=== PATIENT | female | born 1970 | race Caucasian/White ===

== ENCOUNTER 2019-11-30 05:58 | Inpatient (IN) | payer MEDICAID ==
[~2019-11-30] VITALS: Ht 167.6 cm; Wt 63.5 kg
--- NOTE | 2019-11-30 06:02 | NUR ---
PT AAOX4. LIBYAN SPEAKING. BIBRA [address] STREETS. C/O SOB BUT SAT 96% ON RA. POSSIBLE DRUG USE PER RA. PT PLACED IN BED 6 ON MONITOR AND PULSE OX. NOTED TACHY @ 119. NO ACUTE DISTRESS NOTED. AWAITING MD FOR EVAL AND ORDERS.
--- NOTE | 2019-11-30 06:08 | NUR ---
PT AMBULATED TO THE RESTROOM WITH STEADY GAIT.
--- NOTE | 2019-11-30 06:09 | NUR ---
PT PROVIDED URINE SAMPLE, SENT TO LAB.
--- NOTE | 2019-11-30 06:10 | NUR ---
LINE INITIATED RAC 20G, LABS DRAWN AND SENT TO LAB.
--- NOTE | 2019-11-30 06:11 | NUR ---
PT STATED SHE DID CRYSTAL METH YESTERDAY.
--- NOTE | 2019-11-30 06:12 | NUR ---
COVID SWAB SENT TO LAB
[2019-11-30] MEDS ORDERED: ACETAMINOPHEN 325 MG TABLET ONE (06:30)
[2019-11-30] MEDS ORDERED: IV NS 0.9% 1,000 ML IV ONE (06:30)
[2019-11-30] MEDS ORDERED: ACETAMINOPHEN 325 MG TABLET PO ONE (06:30)
--- NOTE | 2019-11-30 06:35 | NUR ---
XRAY AT BEDSIDE
[2019-11-30 06:39] LABS: APPEARANCE,URINE SL CLOUDY (CLEAR); BILIRUBIN,URINE SMALL (NEGATIVE); BLOOD, URINE MODERATE Ery/uL (NEGATIVE); COLOR,URINE DARK YELLO (YELLOW); KETONES,URINE TRACE (NEGATIVE); LEUKOCYTE ESTERASE ,URINE NEGATIVE (NEGATIVE); NITRITE, URINE NEGATIVE (NEGATIVE); PROTEIN,URINE 100 mg/dl (NEGATIVE); UGLUCOSE NEGATIVE (NEGATIVE)
[2019-11-30 06:41] LABS: BASOPHILS % (AUTO) 0.2 % (0.0-2.0); EOSINOPHILS % (AUTO) 0.6 % (0.0-6.0); HEMATOCRIT 39 % (33-45); HEMOGLOBIN 13.2 g/dL (11.5-14.8); LYMPHOCYTES % (AUTO) 7.4 % (20.0-44.0); MEAN CORPUSCULAR HGB CONC 34 g/dl (31.0-36.0); MEAN CORPUSCULAR VOLUME 89 fL (82-100); MONOCYTES # (AUTO) 1.1 /CMM (0.1-1.30); NEUTROPHILS # (AUTO) 11.7 /CMM (1.8-8.9); NEUTROPHILS % (AUTO) 83.8 % (43.0-81.0); PLATELET COUNT (AUTO) 274 /CMM (150-450); RED BLOOD CELL COUNT(AUTO) 4.41 MIL/uL (4.0-5.2)
[2019-11-30 06:57] LABS: ALANINE AMINOTRANSFERASE 22 U/L (12-78); ALKALINE PHOSPHATASE 86 U/L (46-116); ASPARTATE AMINOTRANSFERASE 16 U/L (15-37); BILIRUBIN,DIRECT 0.2 mg/dL (0.0-0.2); BILIRUBIN,TOTAL 0.5 mg/dL (0.2-1.0); CALCIUM, SERUM 8.3 mg/dL (8.5-10.1); CARBON DIOXIDE 27 mmol/L (21-32); CHLORIDE 96 mmol/L (98-107); CREATININE 0.9 mg/dL (0.6-1.3); GLUCOSE 142 mg/dL (74-106); POTASSIUM 3.4 mmol/L (3.5-5.1); SODIUM SERUM 134 mmol/L (136-145); TOTAL PROTEIN, SERUM 8.8 g/dL (6.4-8.2); UREA NITROGEN, BLOOD 15 mg/dL (7-18)
[2019-11-30 07:12] LABS: BACTERIA,URINE Few /HPF (None Seen); SQUAMOUS EPITHELIAL CELL,UR Many /HPF (None Seen); WBC,URINE 0-2 /HPF (0-3)
[2019-11-30] MEDS ORDERED: CEFEPIME 1 GM in IV D5W 50 ML IV ONE (07:30)
[2019-11-30] MEDS ORDERED: VANCOMYCIN 1 GM in IV D5W 250 ML IV ONE (07:30)
--- NOTE | 2019-11-30 07:30 | NUR ---
CALLED PHARM FOR MEDS
--- NOTE | 2019-11-30 07:58 | NUR ---
TEMP 101.6, AWARE.
--- NOTE | 2019-11-30 08:03 | NUR ---
REQUESTED BED FROM NURSING SUP.
--- NOTE | 2019-11-30 08:07 | NUR ---
TELE OVERFLOW 253
--- NOTE | 2019-11-30 08:18 | NUR ---
PAGED WALTER POWELL CATERING ATTENDANT
[2019-11-30 08:24] LABS: C-REACTIVE PROTEIN 153.4 mg/dL (0.0-0.9)
--- NOTE | 2019-11-30 08:45 | NUR ---
REPORT GIVEN TO KAVON JOSUE.
[2019-11-30] MEDS ORDERED: IOHEXOL-350 100 ML VIAL IV ONE (08:59)
[2019-11-30] MEDS ORDERED: MAGNESIUM HYDROXIDE 30 ML UDC PO PRN (09:00)
[2019-11-30] MEDS ORDERED: ONDANSETRON HCL/PF 4 MG/2 ML VIAL IVP PRN (09:00)
[2019-11-30] MEDS ORDERED: MAG HYDROX/AL HYDROX/SIMETH 30 ML UDC PO PRN (09:00)
[2019-11-30] MEDS ORDERED: Z GUARD REMEDY 2 OZ OINT TP PRN (09:00)
[2019-11-30] MEDS ORDERED: IV NS 0.9% 250 ML IV ONE (09:00)
--- NOTE | 2019-11-30 09:12 | NUR ---
COVID ANTIGEN SENT.
--- NOTE | 2019-11-30 10:05 | NUR ---
PATIENT TRANSFERRED TO ROOM 253 VIA ACLS PROTOCOL. REPORT GIVEN TO KAVON JOSUE.
[2019-11-30 10:10] VITALS: BP 132/65
--- NOTE | 2019-11-30 10:10 | NUR ---
RN OPENING NOTE Received patient awake transferred to room 253. Verbally responsive. Noted with signs of chills. Wants to go to the bathroom. Assisted in commode. Complained of pain and discomfort on neck and chest. Withdraws from pain. Vital signs taken and hooked up to telemonitor. VS as follows: Temp 100.9, Pulse 127, RR 27, BP 132/65, O2 sat 97%. Noted with pus filled multiple wounds size about 2.0x2.0cm on neck and chest. Picture taken and placed in chart. Placed on ice packs for fever. Safety measures implemented. Call light within reach. Bed locked and on lowest position. HOB elevated. Will cont to monitor.
[2019-11-30] MEDS: IV NS 0.9% 1,000 ML IV PRN (10:52)
[2019-11-30] MEDS: POTASSIUM CL. PREMIX PERIPHER. 50 ML IV SCH ×2 (10:54→12:49)
[2019-11-30] MEDS: HYDROCODONE/APAP 5/325MG TABLET PO PRN ×2 (10:54→19:54)
[2019-11-30] MEDS: ENOXAPARIN SODIUM 40 MG/0.4 ML DISP.SYRIN SQ SCH (10:55)
[2019-11-30 12:00] VITALS: BP 105/65
[2019-11-30] MEDS: CEFEPIME 2 GM in IV D5W 100 ML IV SCH ×2 (13:59→21:56)
[2019-11-30 14:02] LABS: ABG BASE EXCESS -0.8 mmol/L; ABG OXYGEN SATURATION 98.2 % (92.0-98.5); ABG PCO2 30.6 mmHg (35.0-45.0); ABG PH 7.473 (7.350-7.450); ABG PO2 105.6 mmHg (75.0-100.0); AaDO2 57.9 mmHg; COHb 0.5 % (0.5-1.5); MetHb 0.2 % (0.0-1.5); O2Hb 97.5 % (94.0-97.0); SITE, ABG Right Radial; VENT MODE, BG NASAL CANNULA
[2019-11-30 16:00] VITALS: BP 117/70
[2019-11-30] MEDS: VANCOMYCIN 0.75 GM in IV D5W 250 ML IV SCH ×2 (16:47→23:09)
--- NOTE | 2019-11-30 18:24 | NUR ---
COLLECTED URINE SPECIMEN AND CALLED LAB
--- NOTE | 2019-11-30 18:32 | NUR ---
RN CLOSING NOTE Patient asleep in bed appears calm and relaxed no signs of distress. On NC 2L tolerating well O2 sat at 100%. Patient is AOx4 . Tele monitor reading ST 110-115BPM. Patient is NPO at this time. Has RAC #20 running NS @75ML/HR tolerating well. Wound consult ordered. Safety measures reinforced. Call light within reach. Will endorse to baker apprentice nurse.
[2019-11-30] MEDS: ACETAMINOPHEN 325 MG TABLET PO PRN (19:53)
[2019-11-30 20:00] VITALS: BP 109/59
[2019-11-30] MEDS: FAMOTIDINE (20 MG) 20 MG TABLET PO SCH (21:56)
[2019-12-01] VITALS (7 sets, daily range): BP systolic 91–134; BP diastolic 55–76
[2019-12-01] MEDS: IV NS 0.9% 1,000 ML IV PRN ×2 (02:54→20:31)
[2019-12-01 04:38] LABS: BASOPHILS # (AUTO) 0.1 /CMM (0.0-0.2); BASOPHILS % (AUTO) 0.7 % (0.0-2.0); EOSINOPHILS % (AUTO) 6.4 % (0.0-6.0); HEMATOCRIT 37 % (33-45); HEMOGLOBIN 12.3 g/dL (11.5-14.8); LYMPHOCYTES # (AUTO) 0.7 /CMM (0.8-4.8); MEAN CORPUSCULAR HGB CONC 33 g/dl (31.0-36.0); MEAN CORPUSCULAR VOLUME 90 fL (82-100); MONOCYTES # (AUTO) 1.4 /CMM (0.1-1.30); MONOCYTES % (AUTO) 11.3 % (2.0-12.0); NEUTROPHILS # (AUTO) 9.2 /CMM (1.8-8.9); NEUTROPHILS % (AUTO) 75.6 % (43.0-81.0); PLATELET COUNT (AUTO) 235 /CMM (150-450); RED BLOOD CELL COUNT(AUTO) 4.12 MIL/uL (4.0-5.2); WHITE BLOOD COUNT (AUTO) 12.1 K/uL (4.3-11.0)
[2019-12-01 04:52] LABS: CALCIUM, SERUM 7.7 mg/dL (8.5-10.1); MAGNESIUM 2.4 mg/dL (1.8-2.4); PHOSPHORUS 2.4 mg/dL (2.5-4.9); POTASSIUM 3.4 mmol/L (3.5-5.1)
[2019-12-01 05:01] LABS: THYROID STIMULATING HORMONE 1.03 uIU/mL (0.358-3.74)
[2019-12-01] MEDS: HYDROCODONE/APAP 5/325MG TABLET PO PRN ×3 (05:07→20:30)
[2019-12-01] MEDS: CEFEPIME 2 GM in IV D5W 100 ML IV SCH ×3 (05:09→21:15)
--- NOTE | 2019-12-01 05:49 | NUR ---
RN notes In bed, resting comfortably with no respiratory distress noted., Breathing even and unlabored. Alert and oriented, ambulatory, able to verbally communicate needs. Complained of pain, norco x 2 given with relief. Patient's temp at the beginning of the shift was 101.6 cooling measures provided, by 4am temp was 99.1. Kept clean and dry. Will continue to monitor. Will endorse to next shift for continuity of care
--- NOTE | 2019-12-01 07:37 | NUR ---
NUTRITION AIDES TEACHER NOTE PATIENT IN BED, RESTING COMFORTABLY AT THIS TIME , ON 2L NC ,SATURATION 98% AT THIS TIME , STILL ON NPO STATUS ,RT AC HL INTACT AND FLUSHED WELL ON IVF ORDERED KENDAL IN LOWEST AND LOCKED POSITION , WILL CONT TO MONITOR CALL LIGHT WITHIN REACH, ON TELE MONITOR ST HR 102
[2019-12-01] MEDS: VANCOMYCIN 0.75 GM in IV D5W 250 ML IV SCH ×3 (07:48→23:25)
[2019-12-01] MEDS: FAMOTIDINE (20 MG) 20 MG TABLET PO SCH ×2 (08:31→20:30)
[2019-12-01] MEDS: ENOXAPARIN SODIUM 40 MG/0.4 ML DISP.SYRIN SQ SCH (08:32)
--- NOTE | 2019-12-01 09:22 | NUR ---
BUSINESS SERVICES COORDINATOR NOTE PER WALTER DALEY RN HEAVY EQUIPMENT PLUMBING SUPERVISOR OK TO START CARDIAC DIET ,AWARE THAT T 99.4 2DECHO WILL BE DONE
--- NOTE | 2019-12-01 09:45 | NUR ---
CLINICAL TRIALS NURSE NOTE WALTER DALEY RN RIGGING AND CONTROLS AIRCRAFT MECHANIC NOTIFIED THAT PATIENT HAS MRSA IN BLOOD , NO NEW ORDER AT THIS TIME
--- NOTE | 2019-12-01 10:34 | NUR ---
WAREHOUSE SHIPPING RECEIVING CLERK NOTE ASSISTED TO BSC, ABLE TO URINATE WELL
[2019-12-01] MEDS: ACETAMINOPHEN 325 MG TABLET PO PRN ×2 (11:08→23:44)
--- NOTE | 2019-12-01 11:11 | NUR ---
FRESH WORK WRAPPER LAYER NOTE C\O BODY ACHE TYLENOL PO GIVEN ORDERED WILL MONITOR, KEEP CLEAN DRY
[2019-12-01] MEDS ORDERED: POTASSIUM CHLORIDE 20 MEQ TAB.PRT.SR PO SCH (11:30)
[2019-12-01] MEDS ORDERED: K PHOS NEUTRAL 250 MG TABLET PO ONE (12:00)
--- NOTE | 2019-12-01 14:38 | NUR ---
AIRCRAFT CHARTER DISPATCHER NOTE ROUNDS MADE ,CALL LIGHT WITHIN REACH , NO C\O ANY DISCOMFORT AT THIS TIME, WILL MONITOR
--- NOTE | 2019-12-01 16:25 | NUR ---
TOOLS ADMINISTRATOR NOTE ASSISTED TO BSC ABLE TO URINATE WELL C\O BODY PAIN 7\10 NORCO PO GIVEN ORDERED BP111/78 ,SAT 98% WILL MONITOR
--- NOTE | 2019-12-01 16:53 | NUR ---
SWEEPER DRIVER NOTE TRANSFERRED TO ROOM 314 BED2 WITH STABLE CONDITION BY BED
--- NOTE | 2019-12-01 18:45 | NUR ---
MIXING MACHINE ATTENDANT NOTE RESTING COMFORTABLY AT THIS TIME , NO C\O DISCOMFORT AT THIS TIME , ON IVF ORDERED, BED IN LOWEST AND LOCKED POSITION , CALL LIGHT WITHIN REACH, WILL CONT TO MONITOR
--- NOTE | 2019-12-01 19:15 | NUR ---
GLOVE TURNER AND FORMER OPENING NOTES: RECEIVED PATIENT IN BED, AWAKE, A/O X4. NO SOB NOTED. NO COMPLAIN OF PAIN. CALL LIGHT WITHIN REACH. BED IN LOWEST AND LOCKED POSITION. WITH O2 AT 2L/MIN NASAL CANNULA.
[2019-12-02] VITALS: BP 119/66
[2019-12-02 04:00] VITALS: BP_SYST 134; BP_SYST 154; BP_DIAS 73
[2019-12-02] MEDS: CEFEPIME 2 GM in IV D5W 100 ML IV SCH ×2 (05:03→14:09)
--- NOTE | 2019-12-02 05:36 | NUR ---
FOREST NURSERY SUPERVISOR CLOSING NOTES: PATIENT IN BED, ASLEEP, EASILY AROUSABLE. A/O X4. NO SOB NOTED. NO COMPLAIN OF PAIN AT THIS TIME. HOB ELEVATED AT ALL TIMES. CALL LIGHT WITHIN REACH.BED IN LOWEST AND LOCKED POSITION. RESTED THROUGHOUT THE NIGHT. WITH O2 AT 2L/MIN NASAL CANNULA. HAD FEVER LAST NIGHT TEMP 102.4, TYLENOL 650MG PO GIVEN. ICE PACKS PLACED ON THE AXILLAE. LATEST TEMP IS 98.2
[2019-12-02] MEDS: HYDROCODONE/APAP 5/325MG TABLET PO PRN ×3 (06:02→21:13)
[2019-12-02 06:56] LABS: BASOPHILS % (AUTO) 0.5 % (0.0-2.0); EOSINOPHILS % (AUTO) 8.6 % (0.0-6.0); HEMATOCRIT 33 % (33-45); LYMPHOCYTES # (AUTO) 0.9 /CMM (0.8-4.8); LYMPHOCYTES % (AUTO) 8.1 % (20.0-44.0); MEAN CORPUSCULAR HGB CONC 34 g/dl (31.0-36.0); MEAN CORPUSCULAR VOLUME 89 fL (82-100); MONOCYTES % (AUTO) 9.6 % (2.0-12.0); NEUTROPHILS # (AUTO) 7.8 /CMM (1.8-8.9); NEUTROPHILS % (AUTO) 73.2 % (43.0-81.0); PLATELET COUNT (AUTO) 232 /CMM (150-450); WHITE BLOOD COUNT (AUTO) 10.6 K/uL (4.3-11.0)
[2019-12-02 07:23] LABS: CALCIUM, SERUM 7.9 mg/dL (8.5-10.1); CREATININE 0.8 mg/dL (0.6-1.3); PHOSPHORUS 1.6 mg/dL (2.5-4.9); POTASSIUM 3.3 mmol/L (3.5-5.1)
--- NOTE | 2019-12-02 07:30 | NUR ---
TELE/RN NOTE THE PATIENT IS RECEIVED IN BED. THE PATIENT IS ALERT AND ORIENTED X4. DENIES PAIN. RECEIVING OXYGEN AT 2L/MIN VIA NASAL CANNULA AND DENIES SOB. RESPIRATION REGULAR AND UNLABORED. TELE BOX READING IS SINUS TACHYCARDIA 104. THE PATIENT IN NO APPARENT DISTRESS. RAC G 20 PATENT AND NS INFUSING AT 75ML/HR. NO S/S INFILTRATION NOTED. BED LOW AND LOCKED. SIDE RAILS UP X3. CALL LIGHT WITHIN REACH. WILL CONTINUE TO MONITOR.
[2019-12-02 08:00] VITALS: BP 118/73
[2019-12-02] MEDS: FAMOTIDINE (20 MG) 20 MG TABLET PO SCH ×2 (08:36→20:49)
[2019-12-02] MEDS: VANCOMYCIN 0.75 GM in IV D5W 250 ML IV SCH ×3 (08:37→23:51)
[2019-12-02] MEDS: ACETAMINOPHEN 325 MG TABLET PO PRN (08:37)
--- NOTE | 2019-12-02 08:37 | NUR ---
TELE/RN NOTE TYLENOL 650 MG PO GIVEN FOR TEMP PF 101.6F. WILL CONTINUE TO MONITOR.
[2019-12-02] MEDS: ENOXAPARIN SODIUM 40 MG/0.4 ML DISP.SYRIN SQ SCH (08:46)
--- NOTE | 2019-12-02 10:02 | NUR ---
TELE/RN NOTE TEMP IS 101.8F DESPITE GIVING TYLENOL 650 MG PO AT 0837. COOLING MEASURES APPLIED. BUFFING WHEEL RAKER MEENA IS MADE AWARE AND RECEIVED AN ORDER OF IBUPROFEN 400 MG PO Q6HR PRN. NOTED AND CARRIED OUT. WILL ADMINISTERED NEEDED.
[2019-12-02] MEDS ORDERED: IBUPROFEN 400 MG TABLET PO PRN (10:30)
[2019-12-02] MEDS ORDERED: POTASSIUM CHLORIDE 20 MEQ TAB.PRT.SR PO SCH (10:30)
--- NOTE | 2019-12-02 10:30 | NUR ---
TELE/RN NOTE TEMP IS 100.8F. WILL ADMINISTER MOTRIN PER ORDER AND MONITOR THE PATIENT CLOSELY.
[2019-12-02] MEDS ORDERED: K PHOS NEUTRAL 250 MG TABLET PO ONE (11:00)
--- NOTE | 2019-12-02 11:50 | NUR ---
RN NOTE TEMP 98.9F. THE PATIENT IN STABLE CONDITION.
[2019-12-02 16:00] VITALS: BP 127/82
[2019-12-02] MEDS: RIFAMPIN 300 MG CAPSULE PO SCH (16:27)
[2019-12-02] MEDS: IV NS 0.9% 1,000 ML IV PRN (16:54)
--- NOTE | 2019-12-02 18:48 | NUR ---
MS/RN NOTE THE PATIENT IS ALERT AND ORIENTED X4. DENIES PAIN. IN ROOM AIR AND SATURATION IS AT 94%. DENIES SOB. RESPIRATION REGULAR AND UNLABORED. THE PATIENT IN NO APPARENT DISTRESS. RAC G 20 PATENT AND NS INFUSING AT 75ML/HR. NO S/S INFILTRATION NOTED. BED LOW AND LOCKED. SIDE RAILS UP X3. CALL LIGHT WITHIN REACH. WILL ENDORSE TO TRAVEL PT.
--- NOTE | 2019-12-02 19:06 | NUR ---
MS RN OPENING NOTES: RECEIVED PATIENT IN BED, AWAKE A/O X4. NO SOB NOTED. COMPLAINED OF PAIN. CALL LIGHT WITHIN REACH. BED IN LOWEST AND LOCKED POSITION. HOB ELEVATED. BEDSIDE COMMODE NEXT TO THE PATIENT'S BED.
[2019-12-02 20:00] VITALS: BP 128/79
--- NOTE | 2019-12-02 20:25 | NUR ---
REPORTS GIVEN TO JOSELO MCRAE FOR CONTINUITY OF CARE.
--- NOTE | 2019-12-02 20:35 | NUR ---
MS RN OPENING NOTES RECEIVED PATIENT FROM TEJINDER RN, ALERT AND ORIENTED X 4. VERBALLY RESPONSIVE AND ABLE TO FOLLOW DIRECTIONS. BREATHING REGULAR AND UNLABORED ON ROOM AIR. RIGHT AC G20 IV LINE INTACT AND PATENT, INFUSING WELL WITH NO BLEEDING OR S/S OF INFILTRATION NOTED. DENIES SUICIDAL IDEATION AT THIS TIME. COMPLAINED OF 5/10 GENERALIZED PAIN, NON-PHARMACOLOGICAL INTERVENTIONS PROVIDED. BED LOW AND LOCKED ON SEMI FOWLERS POSITION. CALL LIGHT IN REACH. WILL CONTINUE TO MONITOR.
--- NOTE | 2019-12-02 21:15 | NUR ---
MS RN NOTES COMPLAINED OF 5/10 GENERALIZED PAIN, NORCO 5/325 GIVEN BY MOUTH. NON-PHARMACOLOGICAL INTERVENTIONS PROVIDED. VITAL SIGNS WNL. WILL CONTINUE TO MONITOR.
--- NOTE | 2019-12-02 22:00 | NUR ---
MS RN NOTES BODY TEMP 99.9, COOLING MEASURES PROVIDED. NORCO 5/325 GIVEN FOR PAIN. RECHECK AFTER 1HR; BODY TEMP 98.8. WILL CONTINUE TO MONITOR.
[2019-12-03] MEDS: HYDROCODONE/APAP 5/325MG TABLET PO PRN ×3 (02:47→18:28)
[2019-12-03] MEDS: ACETAMINOPHEN 325 MG TABLET PO PRN ×2 (06:27→16:02)
--- NOTE | 2019-12-03 06:30 | NUR ---
MS RN NOTES COMPLAINED OF FEELING WARM AND HEADACHE, BODY TEMP CHECKED AND NOTED WITH 100.1 FEVER. COOLING MEASURES PROVIDED. TYLENOL 650MG GIVEN BY MOUTH. WILL CONTINUE TO MONITOR.
--- NOTE | 2019-12-03 06:50 | NUR ---
MS RN CLOSING NOTES PATIENT IN BED, ALERT AND ORIENTED X 4. FEBRILE BUT WITH NO S/S OF DISTRESS OBSERVED. RIGHT AC G20 IV LINE PATENT AND INFUSING WELL. STILL COMPLAINING OF HEADACHE, NON-PHARMACOLOGICAL INTERVENTIONS PROVIDED WELL COOLING MEASURES. BED LOW AND LOCKED ON SEMI FOWLERS POSITION. CALL LIGHT IN REACH. WILL ENDORSE TO MORNING SHIFT FOR LINA.
--- NOTE | 2019-12-03 07:07 | NUR ---
MS RN OPENING NOTE RECEIVED PT AWAKE IN BED AT THIS TIME. AOX4, NO SOB NOTED, NO S/S OF ANY ACUTE DISTRESS NOTED. NO C/O PAIN AT THIS TIME. RESPIRATIONS ARE EVEN AND UNLABORED WITH EQUAL RISE AND FALL IN CHEST. IV ACCESS NOTED IN RAC G#20, PATENT, INTACT AND FLUSHING WELL. PT CONTINENT WITH BEDSIDE COMMODE. FALL AND SAFETY PRECAUTION IN PLACE AND MAINTAINED AT ALL TIMES. BED IN LOWEST LOCKED POSITION, HOB ELEVATED, RAILS UP X 2, CALL LIGHT WITHIN REACH. WILL CONTINUE TO MONITOR
[2019-12-03 07:08] LABS: BASOPHILS % (AUTO) 0.3 % (0.0-2.0); EOSINOPHILS % (AUTO) 7.7 % (0.0-6.0); HEMATOCRIT 32 % (33-45); HEMOGLOBIN 10.8 g/dL (11.5-14.8); LYMPHOCYTES # (AUTO) 0.9 /CMM (0.8-4.8); MEAN CORPUSCULAR HGB CONC 34 g/dl (31.0-36.0); MEAN CORPUSCULAR VOLUME 89 fL (82-100); MONOCYTES # (AUTO) 0.9 /CMM (0.1-1.30); MONOCYTES % (AUTO) 9.7 % (2.0-12.0); NEUTROPHILS # (AUTO) 6.7 /CMM (1.8-8.9); NEUTROPHILS % (AUTO) 72.3 % (43.0-81.0); PLATELET COUNT (AUTO) 251 /CMM (150-450); RED BLOOD CELL COUNT(AUTO) 3.63 MIL/uL (4.0-5.2); WHITE BLOOD COUNT (AUTO) 9.3 K/uL (4.3-11.0)
[2019-12-03 07:18] LABS: CALCIUM, SERUM 7.5 mg/dL (8.5-10.1); CREATININE 0.7 mg/dL (0.6-1.3); PHOSPHORUS 2.5 mg/dL (2.5-4.9); POTASSIUM 3.5 mmol/L (3.5-5.1)
[2019-12-03 08:25] VITALS: BP 140/87
[2019-12-03] MEDS: IV NS 0.9% 1,000 ML IV PRN (08:32)
[2019-12-03] MEDS: VANCOMYCIN 0.75 GM in IV D5W 250 ML IV SCH ×3 (08:32→23:28)
[2019-12-03] MEDS: ENOXAPARIN SODIUM 40 MG/0.4 ML DISP.SYRIN SQ SCH (08:34)
[2019-12-03] MEDS: FAMOTIDINE (20 MG) 20 MG TABLET PO SCH ×2 (08:44→20:50)
--- NOTE | 2019-12-03 08:45 | NUR ---
PT C/O GENERALIZED PAIN OF 7/10. PT MOANING AND GUARDING AT THIS TIME. PER PT REQUEST, NORCO 5-325 PO Q4HR PRN FOR PAIN ADMINISTERED AT THIS TIME. WILL CONTINUE TO MONITOR
[2019-12-03 10:34] LABS: EOSINOPHILS % (MANUAL) 8 % (0-4); LYMPHOCYTES % (MANUAL) 11 % (16-48); MONOCYTES % (MANUAL) 4 % (0-11.0); NEUTROPHILS % (MANUAL) 77 (42-76)
--- NOTE | 2019-12-03 16:02 | NUR ---
PT NOTED WITH TEMP OF 100.1, COOLING MEASURES IN PLACE, ICE PACK UNDER ARMS, SHEETS REMOVED, PT UNCOVERED, COOL WASH CLOTHES ON FORE HEAD, ROOM KEPT COOL. TYLENOL 650MG PO Q6HR PRN FOR FEVER ADMINISTERED AT THIS TIME PER ORDER. WILL REASSESS AND CONTINUE TO MONITOR
[2019-12-03] MEDS: RIFAMPIN 300 MG CAPSULE PO SCH (16:28)
[2019-12-03 16:51] VITALS: BP 150/91
--- NOTE | 2019-12-03 18:30 | NUR ---
PT C/O GENERALIZED ACHING, PAIN OF 7/10. PT MOANING AND GUARDING AT THIS TIME. PER PT REQUEST, NORCO 5-325 PO Q4HR PRN FOR PAIN ADMINISTERED AT THIS TIME PER ORDER. WILL CONTINUE TO MONITOR
--- NOTE | 2019-12-03 19:00 | NUR ---
PT NOTED WITH TEMP OF 100.1, COOLING MEASURES IN PLACE, ICE PACK UNDER ARMS, SHEETS REMOVED, PT UNCOVERED, COOL WASH CLOTHES ON FORE HEAD, ROOM KEPT COOL. DR VALENZUELA AND COLLEEN, CHARGE NURSE MADE AWARE. NO NEW ORDERS AT THIS TIME. WILL REASSESS AND CONTINUE TO MONITOR
--- NOTE | 2019-12-03 19:03 | NUR ---
MS RN CLOSING NOTES PT AWAKE IN BED AT THIS TIME. PT REMAINED STABLE THROUGHOUT SHIFT. PT KEPT CLEAN AND DRY. ALL CARE, NEEDS, MEDICATION AND WOUND TREATMENT ADMINISTERED ANTICIPATED PER ORDER. SAFETY PRECAUTION IN PLACE AND MAINTAINED AT ALL TIMES. BED IN LOWEST LOCKED POSITION, HOB ELEVATED, RAILS UP X 2, CALL LIGHT WITHIN REACH. WILL ENDORSE TO PAPER CONE MACHINE OPERATOR NURSE FOR LINA
--- NOTE | 2019-12-03 19:50 | NUR ---
MS RN OPENING NOTES RECEIVED PATIENT FROM MORNING SHIFT, ALERT AND ORIENTED X 4. VERBALLY RESPONSIVE AND ABLE TO FOLLOW DIRECTIONS. BREATHING REGULAR AND UNLABORED ON ROOM AIR. RIGHT AC G20 IV LINE INTACT AND PATENT, INFUSING WELL WITH NO BLEEDING OR S/S OF INFILTRATION NOTED. DENIES SUICIDAL IDEATION OR PAIN/DISCOMFORT AT THIS TIME. BED LOW AND LOCKED ON SEMI FOWLERS POSITION. CALL LIGHT IN REACH. WILL CONTINUE TO MONITOR.
[2019-12-03 20:00] VITALS: BP 121/64
[2019-12-04] MEDS: HYDROCODONE/APAP 5/325MG TABLET PO PRN ×2 (00:12→09:55)
--- NOTE | 2019-12-04 00:15 | NUR ---
MS RN NOTES COMPLAINED OF 7/10 GENERALIZED PAIN, NORCO 5/325 GIVEN BY MOUTH. NON-PHARMACOLOGICAL INTERVENTIONS PROVIDED. VITAL SIGNS WNL. WILL CONTINUE TO MONITOR.
[2019-12-04] MEDS: IV NS 0.9% 1,000 ML IV PRN (04:04)
--- NOTE | 2019-12-04 06:25 | NUR ---
MS RN CLOSING NOTES PATIENT IN BED, ALERT AND ORIENTED X 4. AFEBRILE WITH NO S/S OF DISTRESS OBSERVED. RIGHT AC G20 IV LINE PATENT AND INFUSING WELL. NO COMPLAINTS OF PAIN/DISCOMFORT REPORTED AT THIS TIME. BED LOW AND LOCKED ON SEMI FOWLERS POSITION. CALL LIGHT IN REACH. WILL ENDORSE TO MORNING SHIFT FOR LINA.
--- NOTE | 2019-12-04 07:00 | NUR ---
MS RN OPENING NOTE RECEIVED PT AWAKE IN BED AT THIS TIME. AOX4, NO SOB NOTED, NO S/S OF ANY ACUTE DISTRESS NOTED. NO C/O PAIN AT THIS TIME. RESPIRATIONS ARE EVEN AND UNLABORED WITH EQUAL RISE AND FALL IN CHEST. IV ACCESS NOTED IN RAC G#20, PATENT, INTACT AND INFUSING NS @75ML/HR. BEDSIDE COMMODE AT BEDSIDE. SAFETY PRECAUTION IN PLACE AND MAINTAINED AT ALL TIMES. BED IN LOWEST LOCKED POSITION, HOB ELEVATED, RAILS UP X 2, CALL LIGHT WITHIN REACH. WILL CONTINUE TO MONITOR
[2019-12-04 07:41] LABS: BASOPHILS # (AUTO) 0.1 /CMM (0.0-0.2); BASOPHILS % (AUTO) 0.7 % (0.0-2.0); EOSINOPHILS % (AUTO) 9.1 % (0.0-6.0); HEMATOCRIT 33 % (33-45); HEMOGLOBIN 11.1 g/dL (11.5-14.8); LYMPHOCYTES # (AUTO) 0.9 /CMM (0.8-4.8); LYMPHOCYTES % (AUTO) 10.3 % (20.0-44.0); MEAN CORPUSCULAR HGB CONC 34 g/dl (31.0-36.0); MEAN CORPUSCULAR VOLUME 88 fL (82-100); MONOCYTES # (AUTO) 0.6 /CMM (0.1-1.30); MONOCYTES % (AUTO) 6.9 % (2.0-12.0); NEUTROPHILS # (AUTO) 6.2 /CMM (1.8-8.9); PLATELET COUNT (AUTO) 313 /CMM (150-450); RED BLOOD CELL COUNT(AUTO) 3.72 MIL/uL (4.0-5.2); WHITE BLOOD COUNT (AUTO) 8.5 K/uL (4.3-11.0)
[2019-12-04 08:00] VITALS: BP 127/73
[2019-12-04 08:56] LABS: CALCIUM, SERUM 7.5 mg/dL (8.5-10.1); CREATININE 0.8 mg/dL (0.6-1.3); POTASSIUM 3.1 mmol/L (3.5-5.1)
[2019-12-04] MEDS: ENOXAPARIN SODIUM 40 MG/0.4 ML DISP.SYRIN SQ SCH (09:51)
[2019-12-04] MEDS: FAMOTIDINE (20 MG) 20 MG TABLET PO SCH ×2 (09:54→21:25)
--- NOTE | 2019-12-04 09:55 | NUR ---
PT C/O GENERALIZED ACHING PAIN OF 7/10. PT MOANING AND GUARDING AT THIS TIME. PER PT REQUEST, NORCO 5-325 PO Q4HR PRN FOR PAIN ADMINISTERED AT THIS TIME. WILL CONTINUE TO MONITOR
--- NOTE | 2019-12-04 10:00 | NUR ---
PT POTASSIUM 3.1, MCKAY ROBLEDO MADE AWARE AT THIS TIME. AWAITING ORDERS. WILL CONTINUE TO MONITOR
[2019-12-04] MEDS: VANCOMYCIN 0.75 GM in IV D5W 250 ML IV SCH ×2 (10:57→16:57)
--- NOTE | 2019-12-04 11:04 | NUR ---
WOUND CARE [id number]: PT PRESENTS WITH RAISED LESIONS TO CHEST AND NECK, PRESENT ON ADMISSION, UNKNOWN ETIOLOGY. DR DORA GOODEN CALLED FOR SURGICAL CONSULT. IN AGREEMENT WITH PLAN OF CARE.
--- NOTE | 2019-12-04 11:16 | NUR ---
WOUND CARE CONSULT: PT PRESENTS WITH BLANCHABLE REDNESS TO BUTTOCKS, PRESENT ON ADMISSION. RECOMMENDATIONS MADE FOR SKIN PROTECTION. DISCUSSED WITH NURSING STAFF. PT IS ABLE TO ASSIST WITH TURNING AND REPOSITIONING IN BED. WILL SEE PRN. BEAN IN AGREEMENT WITH PLAN OF CARE. CURRENT KATHERINE SCORE IS 15. Addendum: 12/04/19 at 1119 by YAHAIRA MADISON [email or web address] Amended: Links added. Addendum: 12/04/19 at 1119 by YAHAIRA MADISON WNDNU PLEASE DISREGARD ABOVE WOUND CARE CONSULT. INCORRECT CHART.
--- NOTE | 2019-12-04 12:12 | NUR ---
RECEIVED ORDERS TO GET WOUND CULTURE FROM RIGHT BREAST FOLD FROM MCKAY PARKS. ORDERS READ BACK AND CARRIED OUT. WILL CONTINUE TO MONITOR
[2019-12-04] MEDS: POTASSIUM CHLORIDE 20 MEQ TAB.PRT.SR PO SCH ×2 (13:22→14:48)
--- NOTE | 2019-12-04 13:29 | NUR ---
11:30 am Analytical Clerk consult requested by David Rosales NP for homelessness. SW attempted to meet with the patient at bedside; however, patients MD was meeting with the patient. This SW to return at a later time to meet with the patient.
[2019-12-04] MEDS ORDERED: POTASSIUM CHLORIDE 20 MEQ TAB.PRT.SR PO ONE (13:30)
--- NOTE | 2019-12-04 13:30 | NUR ---
PT SCHEDULED FOR CLOSED VERSUS OPEN REDUCTION OF LEFT FINGER PROXIMAL INTERPHALANGEAL, JOINT DISLOCATION TOMORROW MORNING. CONSENT FOR PROCEDURE SIGNED BY PT, BLOOD AND ANESTHESIA SIGNED BY PT AND FILED IN CHART. PROCEDURE CHECKLIST DONE AND FILED IN CHART. WILL CONTINUE TO MONITOR
[2019-12-04] MEDS: RIFAMPIN 300 MG CAPSULE PO SCH (16:57)
--- NOTE | 2019-12-04 19:00 | NUR ---
MS RN CLOSING NOTES PT AWAKE IN BED AT THIS TIME. PT REMAINED STABLE THROUGHOUT SHIFT. PT KEPT CLEAN AND DRY. ALL CARE, NEEDS, MEDICATION AND WOUND TREATMENT ADMINISTERED ANTICIPATED PER ORDER. FALL AND SAFETY PRECAUTION IN PLACE AND MAINTAINED AT ALL TIMES. BED IN LOWEST LOCKED POSITION, HOB ELEVATED, RAILS UP X 2, CALL LIGHT WITHIN REACH. WILL ENDORSE TO RECREATION THERAPIST NURSE FOR LINA
[2019-12-04 20:00] VITALS: BP 123/74
--- NOTE | 2019-12-04 20:00 | NUR ---
MS RN OPENING NOTE: Received patient from AM nurse. Patient in bed sleeping. Patient on room air with PRN 2L nasal cannula. Patient is tolerating room air well. No respiratory distress or SOB noted. Breathing is unlabored and equal. Patient is saturating at 96%. Patient does not complain of pain or discomfort at this time. Noted IV access on right AC 20 gauge, flushes well, patent, dry and intact, no redness or infiltration. Safety precaution is in place, bed is in the lowest level, locked, side rails x2 are up, and call light is within reach. Will continue to monitor.
[2019-12-04 21:13] VITALS: BP 123/74
[2019-12-05] MEDS: VANCOMYCIN 0.75 GM in IV D5W 250 ML IV SCH ×3 (00:08→16:00)
[2019-12-05] MEDS: IV NS 0.9% 1,000 ML IV PRN (00:34)
--- NOTE | 2019-12-05 06:43 | NUR ---
MS RN CLOSING NOTE: Patient in bed sleeping comfortably. Patient is in no signs or respiratory distress or SOB. Patient is breathing well on room air. Breathing equal and unlabored. Safety precaution is in place. Bed is in the lowest level, bed is locked, alarm is on, side rails x2 are up, and call light is within reach. Will endorse to next shift.
[2019-12-05] MEDS: HYDROCODONE/APAP 5/325MG TABLET PO PRN (06:56)
--- NOTE | 2019-12-05 06:56 | NUR ---
MS RN NOTE: Patient complains of right arm pain. Patient rates pain a 7 on a 0-10 scale and describes it as aching. Administered PRN Mason per MD order. Will endorse to next shift.
--- NOTE | 2019-12-05 07:45 | NUR ---
MS RN NOTES RECEIVED PT IN BED, EASILY AROUSED, A/OX4. PT TOLERATING RA, WITH NO ACUTE RESPIRATORY DISTRESS NOTED. PT DENIES ANY PAIN AT THIS TIME. IVF NS AT 75ML/HR TO RFA G22, INTACT AND OPERATIONAL. PT AWARE OF THE PROCEDURE TODAY. PT KEPT COMFORTABLE IN BED. CALL LIGHT KEPT WITHIN REACH. PT'S BED IN LOWEST, LOCKED POSITION WITH SR X3. WILL CONTINUE PLAN OF CARE.
[2019-12-05 08:11] VITALS: BP 122/70
[2019-12-05 08:31] LABS: CREATININE 0.7 mg/dL (0.6-1.3); POTASSIUM 3.4 mmol/L (3.5-5.1)
[2019-12-05] MEDS: FAMOTIDINE (20 MG) 20 MG TABLET PO SCH (08:48)
[2019-12-05] MEDS: ENOXAPARIN SODIUM 40 MG/0.4 ML DISP.SYRIN SQ SCH (08:49)
[2019-12-05 08:53] LABS: BASOPHILS % (AUTO) 0.5 % (0.0-2.0); EOSINOPHILS % (AUTO) 10.4 % (0.0-6.0); HEMATOCRIT 32 % (33-45); HEMOGLOBIN 10.7 g/dL (11.5-14.8); LYMPHOCYTES # (AUTO) 0.9 /CMM (0.8-4.8); LYMPHOCYTES % (AUTO) 13.1 % (20.0-44.0); MEAN CORPUSCULAR HGB CONC 33 g/dl (31.0-36.0); MEAN CORPUSCULAR VOLUME 88 fL (82-100); MONOCYTES # (AUTO) 0.7 /CMM (0.1-1.30); MONOCYTES % (AUTO) 9.3 % (2.0-12.0); NEUTROPHILS # (AUTO) 4.7 /CMM (1.8-8.9); NEUTROPHILS % (AUTO) 66.7 % (43.0-81.0); PLATELET COUNT (AUTO) 367 /CMM (150-450); RED BLOOD CELL COUNT(AUTO) 3.65 MIL/uL (4.0-5.2); WHITE BLOOD COUNT (AUTO) 7.1 K/uL (4.3-11.0)
[2019-12-05] MEDS ORDERED: POTASSIUM CHLORIDE 20 MEQ TAB.PRT.SR PO SCH (10:30)
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
[2019-12-05 14:07] LABS: BAND % (MANUAL) 1 % (0.0-5.0); EOSINOPHILS % (MANUAL) 11 % (0-4); LYMPHOCYTES % (MANUAL) 13 % (16-48); MONOCYTES % (MANUAL) 12 % (0-11.0); NEUTROPHILS % (MANUAL) 63 (42-76)
[2019-12-05] MEDS: RIFAMPIN 300 MG CAPSULE PO SCH (16:00)
[2019-12-05 18:10] VITALS: BP 146/77
--- NOTE | 2019-12-05 18:16 | NUR ---
MS RN NOTES RN CALLED SURGERY AND SPOKE TO JACQUELYN. PT'S PROCEDURE MIGHT GET LATE TONIGHT AROUND 7:30-8PM. PT MADE AWARE.
--- NOTE | 2019-12-05 18:52 | NUR ---
MS RN NOTES PT REMAINS IN BED, AWAKE, A/OX4, UPSET. PT TOLERATING RA, WITH NO ACUTE RESPIRATORY DISTRESS NOTED. PT DENIES ANY PAIN AT THIS TIME. IVF NS AT 75ML/HR TO RFA G22, INTACT AND OPERATIONAL. PT AWARE OF THE PROCEDURE TONIGHT RUNNING LATE. PT KEPT COMFORTABLE IN BED. ALL NEEDS AND CARE ATTENDED. CALL LIGHT KEPT WITHIN REACH. PT'S BED IN LOWEST, LOCKED POSITION WITH SR X3. WILL ENDORSE TO INCOMING NIGHT NURSE FOR LINA.
--- NOTE | 2019-12-05 18:52 | NUR ---
MS RN NOTES PT CURRENTLY UPSET REGARDING LATE SURGERY. RN EXPLAINED SITUATION, PT STILL UPSET. WILL NOTIFY INCOMING NIGHT NURSE WELL.
--- NOTE | 2019-12-05 19:28 | NUR ---
MS RN NOTE: Was receiving shift report from AM nurse, Tarsha, and CODING TECHNICIAN brought to our attention that patient, Cely Reyes was very upset and wanted to leave. Went to patient's room to assess the problem. Patient was visually upset, yelling "I am leaving. I need you to take off this IV before I pull it out." Patient had a surgical procedure that was rescheduled to . Explained to patient that his procedure is almost time. Patient kept saying "I need to go, I need to go. I need you to remove this now, I'm going to remove it." Notified charge nurse and went to get the AMA form. Patient pulled the IV access and proceeded to leave the room. Patient refused to sign the AMA form. Removed ID band and was escorted out of the Hospital by CODING TECHNICIAN. Tarsha notified the doctors and surgery that patient left AMA.
--- NOTE | 2019-12-05 19:28 | NUR ---
MS RN NOTE: Was receiving shift report from AM nurse, Tarsha, and WASTE REDUCTION COORDINATOR brought to our attention that patient, Cely Reyes was very upset and wanted to leave. Went to patient's room to assess the problem. Patient was visually upset, yelling "I am leaving. I need you to take off this IV before I pull it out." Patient had a surgical procedure that was rescheduled to . Explained to patient that his procedure is almost time. Educated patient on the pros and cons of leaving, the risks and consequences involved in leaving the hospital at this time and the benefits of continued treatment. Patient kept saying "I need to go, I need to go. I need you to remove this now, I'm going to remove it." Notified charge nurse and went to get the AMA form. Patient pulled the IV access and proceeded to leave the room. Patient refused to sign the AMA form. Removed ID band and was escorted out of the Hospital by WASTE REDUCTION COORDINATOR. Tarsha notified the doctors and surgery that patient left AMA.
--- NOTE | 2019-12-05 19:31 | NUR ---
MS RN NOTES PT LEFT AMA AND REFUSED TO SIGN AMA. PT UPSET DUE TO LATE SURGERY NOÉ DELAYED AND SPOKE TO JT AT OR, PROCEDURE WILL BE AT 9PM. ENDORSED PT TO JOSELO/ZUNILDA. HOSPITALIST/CN MADE AWARE AND SURGEON WELL.
== END 2019-12-05 19:00 | disposition left against medical advice (07) | DRG 871 ==
LOC: ER 06:01 → ICU 08:18 → TELE 12-01 16:45 → MED 12-02 08:53
PROVIDERS: ADMIT Nurse Practitioner Acute Care; ATTEND Nurse Practitioner Acute Care
DX: A41.02 Sepsis due to Methicillin resistant Staphylococcus aureus (principal); J18.9 Pneumonia, unspecified organism; E87.1 Hypo-osmolality and hyponatremia; I38 Endocarditis, valve unspecified; I76 Septic arterial embolism; E87.6 Hypokalemia; R73.9 Hyperglycemia, unspecified; D72.829 Elevated white blood cell count, unspecified; E86.1 Hypovolemia; Z59.0 Homelessness; L08.9 Local infection of the skin and subcutaneous tissue, unspecified; S63.283A Dislocation of proximal interphalangeal joint of left middle finger, initial encounter; X58.XXXA Exposure to other specified factors, initial encounter; Y92.89 Other specified places as the place of occurrence of the external cause; F15.10 Other stimulant abuse, uncomplicated
CPT/HCPCS: 36415; 36600; 71045-TC; 73130-TC; 80048-TC; 80061-TC; 80076-TC; 80202-TC; 80305; 81000-TC; 82550-TC; 82728-TC; 82803-TC; 83605-TC; 83615-TC; 83735-TC; 83880; 84100-TC; 84443-TC; 84484-TC; 85025-TC; 85378-TC; 85730-TC; 86140-TC; 87040-TC; 87070-TC; 87081-TC; 87086-TC; 93307-TC; 93308-TC; 94799-TC; G0378; J0692; J1650; J3370; J3480; J7030; J7050; J7060; Q9967; U0003-CS

== ENCOUNTER 2021-03-19 13:35 | Emergency (ER) | payer MEDICAID ==
[~2021-03-19] VITALS: Ht 167.6 cm; Wt 76.2 kg
--- NOTE | 2021-03-19 14:13 | NUR ---
[id number] C/O ABDOMINAL PAIN X1WEEK, PAIN IN URINE TODAY. ABDOMEN SOFT AND NON-DISTENDED. WILL CONTINUE TO MONITOR THE PATIENT.
[2021-03-19] MEDS ORDERED: ONDANSETRON HCL/PF 4 MG/2 ML VIAL ONE (14:29)
[2021-03-19] MEDS ORDERED: IV NS 0.9% 1,000 ML BAG IV ONE (14:30)
[2021-03-19] MEDS ORDERED: ONDANSETRON HCL/PF 4 MG/2 ML VIAL IVP ONE (14:30)
--- NOTE | 2021-03-19 14:34 | NUR ---
PT TAKEN TO CT
--- NOTE | 2021-03-19 14:53 | NUR ---
COVID TEST AND LABS COLLECT AND SENT AT BEDSIDE
[2021-03-19 15:27] LABS: BASOPHILS % (AUTO) 0.1 % (0.0-2.0); EOSINOPHILS % (AUTO) 0.1 % (0.0-6.0); HEMATOCRIT 40 % (33-45); HEMOGLOBIN 13.8 g/dL (11.5-14.8); LYMPHOCYTES # (AUTO) 0.9 K/uL (0.8-4.8); LYMPHOCYTES % (AUTO) 9.6 % (20.0-44.0); MEAN CORPUSCULAR HGB CONC 34 g/dl (31.0-36.0); MEAN CORPUSCULAR VOLUME 90 fL (82-100); MONOCYTES # (AUTO) 0.9 K/uL (0.1-1.30); MONOCYTES % (AUTO) 9.3 % (2.0-12.0); NEUTROPHILS # (AUTO) 7.9 K/uL (1.8-8.9); NEUTROPHILS % (AUTO) 80.9 % (43.0-81.0); PLATELET COUNT (AUTO) 299 K/uL (150-450); RED BLOOD CELL COUNT(AUTO) 4.49 MIL/uL (4.0-5.2); WHITE BLOOD COUNT (AUTO) 9.8 K/uL (4.3-11.0)
[2021-03-19 15:36] LABS: CALCIUM, SERUM 8.6 mg/dL (8.5-10.1); CREATININE 1.4 mg/dL (0.6-1.3)
[2021-03-19 15:42] LABS: ALBUMIN 2.2 g/dL (3.4-5.0); BILIRUBIN,DIRECT 0.3 mg/dL (0.0-0.2); BILIRUBIN,TOTAL 0.7 mg/dL (0.2-1.0); TOTAL PROTEIN, SERUM 8.1 g/dL (6.4-8.2)
[2021-03-19] MEDS ORDERED: LEVO500T90 PO (16:28)
[2021-03-19] MEDS ORDERED: METR500T PO (16:28)
--- NOTE | 2021-03-19 16:37 | NUR ---
Patient discharged to home in stable condition. RX Written and verbal after care instructions given. Patient verbalizes understanding of instruction. PT ambulatory with a steady gait
--- NOTE | 2021-03-19 17:04 | NUR ---
IV removed. Catheter intact and site benign. Pressure and 4x4 applied to site. No bleeding noted.
[2021-03-19 17:08] VITALS: BP 132/78
[2021-03-19 17:16] LABS: BAND % (MANUAL) 11 % (0.0-5.0); LYMPHOCYTES % (MANUAL) 12 % (16-48); MONOCYTES % (MANUAL) 7 % (0-11.0); NEUTROPHILS % (MANUAL) 70 (42-76)
== END 2021-03-19 17:12 | disposition home or self-care (01) ==
LOC: ER 14:14
DX: K52.9 Noninfective gastroenteritis and colitis, unspecified (principal); Z20.822 Contact with and (suspected) exposure to COVID-19; K42.9 Umbilical hernia without obstruction or gangrene; Z98.82 Breast implant status; Z91.013 Allergy to seafood
CPT/HCPCS: 36415; 74176; 80048; 80076; 83690; 85007; 85025; 87426; 96361; 96374; 99284; C9803; J2405; J7030